=== PATIENT | female | born 1945 | race Caucasian/White ===

== ENCOUNTER 2018-03-22 07:18 | Day surgery (SDC) | payer MEDICARE, MEDICAID ==
[~2018-03-22] VITALS: Ht 157.5 cm; Wt 78.5 kg
[~2018-03-22 07:18] MED LIST: CLON0.1T PO; CLOP75TA15 PO; FAMO20TA8 PO; LACTATED RINGERS 1,000 ML IV SCH; LOSA100T14 PO; MECL-109 PO
[2018-03-22] MEDS ORDERED: SKIN ADHESIVE 0.7 GM EA TOP ONE ×2 (07:33→10:55)
[2018-03-22] MEDS ORDERED: BUPIVACAINE HCL 0.5% (5MG/ML) 50ML ONE (09:19)
[2018-03-22] MEDS ORDERED: LIDOCAINE HCL/PF 1% 10 MG/ML 5ML VIAL ONE (09:58)
[2018-03-22] MEDS ORDERED: MIDAZOLAM HCL 2 MG/2 ML VIAL ONE (09:58)
[2018-03-22] MEDS ORDERED: FENTANYL CITRATE/PF 50MCG/ML 2ML VIAL ONE (09:58)
[2018-03-22] MEDS ORDERED: PROPOFOL 200MG/20ML VIAL IV ONE (09:58)
[2018-03-22] MEDS ORDERED: ROCURONIUM BROMIDE 10MG/ML VIAL 5ML IV ONE (09:59)
[2018-03-22] MEDS ORDERED: EPHEDRINE SULFATE 50MG/ML VIAL ONE (10:02)
[2018-03-22] MEDS ORDERED: SODIUM CHLORIDE 0.9% 10ML VIAL ONE ×2 (10:02→10:03)
[2018-03-22] MEDS ORDERED: CEFAZOLIN SODIUM 1000MG/VIAL ONE ×2 (10:02→10:36)
[2018-03-22] MEDS ORDERED: BUPIVACAINE HCL/PF 0.5% (5MG/ML) 10ML ONE (11:04)
[2018-03-22] MEDS ORDERED: NEOSTIGMINE METHYLSULFATE 1MG/ML 10 ML VIAL ONE (11:10)
[2018-03-22] MEDS ORDERED: GLYCOPYRROLATE 0.2 MG/ML 2ML VIAL ONE (11:11)
[2018-03-22] MEDS ORDERED: LABETALOL HCL 5MG/ML VIAL 20ML IV ONE (11:46)
[2018-03-22] MEDS ORDERED: MORPHINE SULFATE 10 MG/ML CPJ IV PRN (12:15)
[2018-03-22] MEDS ORDERED: BUPIVACAINE HCL 0.5% 125 ML in ON-Q PM012 DRUG DELIV DEVICE 1 EA IR SCH (12:30)
== END 2018-03-22 14:15 | disposition home or self-care (01) ==
LOC: OR 07:18
PROVIDERS: ATTEND Surgery
DX: K40.90 Unilateral inguinal hernia, without obstruction or gangrene, not specified as recurrent (principal); E78.00 Pure hypercholesterolemia, unspecified; I10 Essential (primary) hypertension; K21.9 Gastro-esophageal reflux disease without esophagitis; Z79.899 Other long term (current) drug therapy; Z98.890 Other specified postprocedural states; Z88.8 Allergy status to other drugs, medicaments and biological substances
CPT/HCPCS: 49505; A4216; C1781; J0690; J2250; J2710; J3010; J3490; J2704; J7120

== ENCOUNTER 2018-03-28 16:35 | Emergency (ER) | payer MEDICARE, MEDICAID ==
[~2018-03-28] VITALS: Ht 160 cm; Wt 70.0 kg
[~2018-03-28 16:35] MED LIST changes: -LACTATED RINGERS 1,000 ML IV SCH
[2018-03-28] MEDS ORDERED: SODIUM CHLORIDE 0.9% 1,000 ML IV ONE (17:25)
[2018-03-28] MEDS ORDERED: MECLIZINE 25MG TABLET PO ONE (17:30)
[2018-03-28] MEDS ORDERED: CLONIDINE 0.2MG TABLET PO ONE (17:30)
[2018-03-28 18:54] LABS: EOSINOPHILS % 2.8 % (0.0-5.0); HEMATOCRIT. 37.8 % (36.0-48.0); HEMOGLOBIN. 13.3 g/dL (12.0-16.0); LYMPHOCYTES % 17.3 % (20.0-50.0); MEAN CORPUSCULAR HEMOGLOBIN 31.5 pg (28.0-32.0); MEAN CORPUSCULAR VOLUME 89.7 fL (81.0-99.0); MEAN PLATELET VOLUME 7.8 fl (7.4-10.4); MONOCYTES % 7.6 % (2.0-8.0); NEUTROPHILS % 71.3 % (40.0-76.0); PLATELET 309 x1000/uL (130-400); RED BLOOD CELL COUNT 4.21 mill/uL (4.2-5.4); RED CELL DISTRIBUTION WIDTH 12.5 % (11.6-14.6)
[2018-03-28 18:59] LABS: CHLORIDE 104 mEq/L (98-107)
[2018-03-28 19:02] LABS: PARTIAL THROMBOPLASTIN TIME 28.6 sec (23.4-31.0); PROTHROMBIN TIME 10.1 sec (9.1-11.1)
[2018-03-28 20:40] LABS: CLARITY URINE CLEAR (CLEAR); COLOR URINE YELLOW (YELLOW); KETONES URINE NEGATIVE (NEGATIVE); LEUKOCYTE ESTERASE URINE NEGATIVE (NEGATIVE); NITRITE URINE NEGATIVE (NEGATIVE); OCCULT BLOOD URINE NEGATIVE (NEGATIVE); PH URINE 7.5 (4.5-8.0); PROTEIN URINE NEGATIVE (NEGATIVE); SPECIFIC GRAVITY URINE 1.004 (1.005-1.030); UROBILINOGEN URINE 0.2 E.U./dL (0.2-1.0)
[2018-03-28 21:30] VITALS: BP 153/59
[2018-03-28] MEDS ORDERED: ONDANSETRON 4MG/5ML UDC PO ONE (22:00)
== END 2018-03-28 21:42 | disposition home or self-care (01) ==
LOC: ER 17:34
DX: H81.10 Benign paroxysmal vertigo, unspecified ear (principal); I10 Essential (primary) hypertension; Z88.8 Allergy status to other drugs, medicaments and biological substances
CPT/HCPCS: 36415; 70450; 71045; 80053; 81003; 83880; 84484; 85025; 85610; 85730; 87086; 93005; 96360; 96361; 99284; J7030; J8597

== ENCOUNTER 2018-11-30 11:56 | Emergency (ER) | payer MEDICARE, MEDICAID ==
[~2018-11-30] VITALS: Ht 157.5 cm; Wt 73.0 kg
[~2018-11-30 11:56] MED LIST changes: -LOSA100T14 PO; +LOSA100T32 PO
[2018-11-30 17:31] LABS: BASOPHILS % 1.1 % (0.0-2.0); HEMATOCRIT. 42.1 % (36.0-48.0); HEMOGLOBIN. 14.4 g/dL (12.0-16.0); LYMPHOCYTES % 22.7 % (20.0-50.0); MEAN CORPUSCULAR HEMOGLOBIN 31.6 pg (28.0-32.0); MEAN CORPUSCULAR VOLUME 92.2 fL (81.0-99.0); MEAN PLATELET VOLUME 8.3 fl (7.4-10.4); MONOCYTES % 9.7 % (2.0-8.0); NEUTROPHILS % 65.5 % (40.0-76.0); PLATELET 250 x1000/uL (130-400); RED BLOOD CELL COUNT 4.57 mill/uL (4.2-5.4)
[2018-11-30 17:42] LABS: CHLORIDE 103 mEq/L (98-107)
[2018-11-30 18:26] LABS: CLARITY URINE CLEAR (CLEAR); COLOR URINE YELLOW (YELLOW); KETONES URINE NEGATIVE (NEGATIVE); LEUKOCYTE ESTERASE URINE 1+ (NEGATIVE); NITRITE URINE NEGATIVE (NEGATIVE); OCCULT BLOOD URINE TRACE (NEGATIVE); PROTEIN URINE NEGATIVE (NEGATIVE); SPECIFIC GRAVITY URINE 1.008 (1.005-1.030); UROBILINOGEN URINE 0.2 E.U./dL (0.2-1.0)
[2018-11-30] MEDS ORDERED: SODIUM CHLORIDE 0.9% 1,000 ML IV ONE (18:36)
[2018-11-30] MEDS ORDERED: CEFTRIAXONE 1 G PREMIX 50 ML IV ONE (18:45)
[2018-11-30] MEDS ORDERED: MECLIZINE 25MG TABLET PO ONE (18:45)
[2018-11-30] MEDS ORDERED: ACETAMINOPHEN 325MG TABLET PO ONE (18:45)
[2018-11-30 21:20] VITALS: BP 144/50
== END 2018-11-30 21:30 | disposition home or self-care (01) ==
LOC: ER 11:56
DX: N39.0 Urinary tract infection, site not specified (principal); R42 Dizziness and giddiness; R51 Headache; I10 Essential (primary) hypertension; Z88.8 Allergy status to other drugs, medicaments and biological substances; Z88.6 Allergy status to analgesic agent; Z79.899 Other long term (current) drug therapy
CPT/HCPCS: 36415; 70450; 71045; 80053; 81003; 83880; 84484; 85025; 85610; 93005; 96365; 99284; J0696; J7030; J8597

== ENCOUNTER 2018-12-03 15:01 | Emergency (ER) | payer MEDICARE, MEDICAID ==
[~2018-12-03] VITALS: Ht 165.1 cm; Wt 73.0 kg
[2018-12-03 18:27] VITALS: BP 133/85
== END 2018-12-03 23:00 | disposition home or self-care (01) ==
LOC: ER 19:18
DX: N39.0 Urinary tract infection, site not specified (principal); R51 Headache; I10 Essential (primary) hypertension; Z88.8 Allergy status to other drugs, medicaments and biological substances; Z88.6 Allergy status to analgesic agent; Z79.899 Other long term (current) drug therapy
CPT/HCPCS: 99283

== ENCOUNTER 2020-02-02 15:31 | Emergency (ER) | payer MEDICARE, MEDICAID ==
[~2020-02-02] VITALS: Ht 157.5 cm; Wt 79.0 kg
[~2020-02-02 15:31] MED LIST changes: -MECL-109 PO; +MECL-159 PO
[2020-02-02 18:46] LABS: BASOPHILS % 1.4 % (0.0-2.0); EOSINOPHILS % 3.2 % (0.0-5.0); HEMATOCRIT. 41.6 % (36.0-48.0); HEMOGLOBIN. 14.2 g/dL (12.0-16.0); LYMPHOCYTES % 23.4 % (20.0-50.0); MEAN CORPUSCULAR HEMOGLOBIN 31.6 pg (28.0-32.0); MEAN CORPUSCULAR VOLUME 92.4 fL (81.0-99.0); MEAN PLATELET VOLUME 8.6 fl (7.4-10.4); MONOCYTES % 9.9 % (2.0-8.0); NEUTROPHILS % 62.1 % (40.0-76.0); PLATELET 233 x1000/uL (130-400); RED CELL DISTRIBUTION WIDTH 13.1 % (11.6-14.6)
[2020-02-02 18:56] LABS: CHLORIDE 107 mEq/L (98-107)
[2020-02-02 19:00] LABS: CLARITY URINE CLEAR (CLEAR); COLOR URINE YELLOW (YELLOW); KETONES URINE NEGATIVE (NEGATIVE); LEUKOCYTE ESTERASE URINE NEGATIVE (NEGATIVE); NITRITE URINE NEGATIVE (NEGATIVE); OCCULT BLOOD URINE NEGATIVE (NEGATIVE); PH URINE 6.5 (4.5-8.0); PROTEIN URINE NEGATIVE (NEGATIVE); SPECIFIC GRAVITY URINE 1.012 (1.005-1.030)
[2020-02-02] MEDS ORDERED: SODIUM CHLORIDE 0.9% 500 ML IV ONE (21:30)
[2020-02-03 00:07] LABS: CHLORIDE 107 mEq/L (98-107)
[2020-02-03 01:45] VITALS: BP 156/71
== END 2020-02-03 02:00 | disposition home or self-care (01) ==
LOC: ER 15:31
DX: R42 Dizziness and giddiness (principal); I10 Essential (primary) hypertension; Z88.8 Allergy status to other drugs, medicaments and biological substances
CPT/HCPCS: 36415; 70450; 80053; 81003; 81025; 83880; 84484; 85025; 93005; 96360; 99285; J7040

== ENCOUNTER 2021-10-21 16:58 | Inpatient (IN) | payer MEDICARE, MEDICAID ==
[~2021-10-21] VITALS: Ht 152.4 cm; Wt 77.1 kg
[~2021-10-21 16:58] MED LIST changes: +ALEN35TA52 PO; +ASPI-1497 PO; +ATOR20TA PO; -CLON0.1T PO; -FAMO20TA8 PO; +FURO-151 PO; +LISI40TA13 PO; -LOSA100T32 PO
[2021-10-21 20:51] LABS: HEMATOCRIT. 40.2 % (36.0-48.0); HEMOGLOBIN. 13.7 g/dL (12.0-16.0); MEAN CORPUSCULAR HEMOGLOBIN 30.2 pg (28.0-32.0); MEAN PLATELET VOLUME 7.8 fl (7.4-10.4); PLATELET 287 x1000/uL (130-400); RED BLOOD CELL COUNT 4.52 mill/uL (4.2-5.4); RED CELL DISTRIBUTION WIDTH 12.7 % (11.6-14.6)
[2021-10-21 20:57] LABS: CHLORIDE 102 mEq/L (98-107)
[2021-10-21 21:17] LABS: PLATELET ESTIMATE NORMAL
[2021-10-21] MEDS ORDERED: ONDANSETRON 4MG ODT PO STA (23:12)
[2021-10-21] MEDS ORDERED: MAGNESIUM/ALUMINUM HYDROXIDE/SIMETHICONE 30ML UDC PO STA (23:12)
[2021-10-21] MEDS ORDERED: VISCOUS LIDOCAINE 2% 15 ML UDC PO STA (23:12)
[2021-10-21] MEDS ORDERED: FAMOTIDINE 20MG TABLET PO ONE (23:15)
[2021-10-22] VITALS (16 sets, daily range): BP systolic 101–130; BP diastolic 37–52
[2021-10-22 00:14] LABS: CLARITY URINE CLOUDY (CLEAR); COLOR URINE DARK YELLOW (YELLOW); KETONES URINE 1+ (NEGATIVE); LEUKOCYTE ESTERASE URINE 3+ (NEGATIVE); NITRITE URINE NEGATIVE (NEGATIVE); OCCULT BLOOD URINE 1+ (NEGATIVE); PH URINE 5.5 (4.5-8.0); PROTEIN URINE 1+ (NEGATIVE); SPECIFIC GRAVITY URINE 1.023 (1.005-1.030)
[2021-10-22] MEDS ORDERED: SODIUM CHLORIDE 0.9% 1,000 ML IV ONE (01:00)
[2021-10-22] MEDS ORDERED: CEFTRIAXONE 1 G PREMIX 50 ML IV ONE (01:00)
[2021-10-22] MEDS ORDERED: METRONIDAZOLE 500 MG PREMIX 100 ML IV ONE (02:45)
[2021-10-22] MEDS ORDERED: METRONIDAZOLE 500 MG PREMIX 100 ML IV NR (06:45)
[2021-10-22] MEDS ORDERED: LIDOCAINE HCL 1% 20ML VIAL (Pyxis) INJ ONE (09:46)
[2021-10-22] MEDS ORDERED: ONDANSETRON HCL 4MG/2ML INJ IV PRN (10:00)
[2021-10-22] MEDS ORDERED: ACETAMINOPHEN 325MG TABLET PO PRN (10:00)
[2021-10-22] MEDS ORDERED: NITR100C MT (11:56)
[2021-10-22] MEDS ORDERED: PNEUMOCOCCAL VACCINE IM ONE (12:15)
[2021-10-22 12:41] LABS: INR 1.2; PROTHROMBIN TIME 12.4 sec (9.6-11.0)
[2021-10-22] MEDS ORDERED: FENTANYL CITRATE/PF 50MCG/ML 2ML VIAL ONE (12:59)
[2021-10-22] MEDS ORDERED: FENTANYL CITRATE/PF 50MCG/ML 2ML VIAL IV NR (13:45)
[2021-10-22] MEDS: PIPERACILLIN/TAZOBACTAM 3.375 G in DEXTROSE 5% WATER 50 ML IV SCH ×2 (14:38→21:23)
[2021-10-23] VITALS: BP 120/52
[2021-10-23 04:00] VITALS: BP 113/50
[2021-10-23] MEDS: PIPERACILLIN/TAZOBACTAM 3.375 G in DEXTROSE 5% WATER 50 ML IV SCH ×3 (06:38→22:11)
[2021-10-23 08:00] VITALS: BP 112/44
[2021-10-23 08:33] LABS: BASOPHILS % 0.2 % (0.0-2.0); EOSINOPHILS % 0.3 % (0.0-5.0); HEMATOCRIT. 35.7 % (36.0-48.0); HEMOGLOBIN. 12.4 g/dL (12.0-16.0); LYMPHOCYTES % 11.2 % (20.0-50.0); MEAN CORPUSCULAR HEMOGLOBIN 31.1 pg (28.0-32.0); MEAN CORPUSCULAR VOLUME 89.4 fL (81.0-99.0); MEAN PLATELET VOLUME 8.4 fl (7.4-10.4); MONOCYTES % 7.3 % (2.0-8.0); PLATELET 213 x1000/uL (130-400); RED CELL DISTRIBUTION WIDTH 13.1 % (11.6-14.6)
[2021-10-23 09:19] LABS: CHLORIDE 104 mEq/L (98-107)
[2021-10-23] MEDS ORDERED: POTASSIUM CHLORIDE 20MEQ TABLET SR PO NR (10:00)
[2021-10-23 12:00] VITALS: BP 111/50
[2021-10-23 16:00] VITALS: BP 128/80
[2021-10-23 20:00] VITALS: BP 119/66
[2021-10-24] VITALS: BP 109/38
[2021-10-24 04:00] VITALS: BP 104/39
[2021-10-24] MEDS: PIPERACILLIN/TAZOBACTAM 3.375 G in DEXTROSE 5% WATER 50 ML IV SCH ×2 (05:09→13:42)
[2021-10-24 08:00] VITALS: BP 107/44
[2021-10-24 08:01] LABS: BASOPHILS % 0.4 % (0.0-2.0); EOSINOPHILS % 1.4 % (0.0-5.0); HEMATOCRIT. 35.2 % (36.0-48.0); HEMOGLOBIN. 12.1 g/dL (12.0-16.0); LYMPHOCYTES % 13.6 % (20.0-50.0); MEAN CORPUSCULAR VOLUME 89.9 fL (81.0-99.0); MEAN PLATELET VOLUME 8.5 fl (7.4-10.4); MONOCYTES % 8.9 % (2.0-8.0); NEUTROPHILS % 75.7 % (40.0-76.0); PLATELET 222 x1000/uL (130-400); RED BLOOD CELL COUNT 3.91 mill/uL (4.2-5.4)
[2021-10-24 08:52] LABS: CHLORIDE 107 mEq/L (98-107)
[2021-10-24 12:00] VITALS: BP 106/68
[2021-10-24] MEDS ORDERED: LEVO500T90 MT (12:03)
[2021-10-24] MEDS ORDERED: POTASSIUM CHLORIDE 20MEQ TABLET SR PO NR (12:15)
[2021-10-24 14:30] VITALS: BP 106/68
[2021-10-24 16:00] VITALS: BP 115/84
== END 2021-10-24 16:14 | disposition home or self-care (01) | DRG 442 ==
LOC: ER 16:58 → 6EST 10-22 02:13 → CANRESERV 10-22 08:01 → ENRESERV 10-22 08:01
PROVIDERS: ADMIT Internal Medicine; ATTEND Internal Medicine
PROC: 0F9030Z Drainage of Liver with Drainage Device, Percutaneous Approach (ICD-10-PCS; principal; 2021-10-22)
DX: K75.0 Abscess of liver (principal); N39.0 Urinary tract infection, site not specified; R65.10 Systemic inflammatory response syndrome (SIRS) of non-infectious origin without acute organ dysfunction; K80.20 Calculus of gallbladder without cholecystitis without obstruction; E66.9 Obesity, unspecified; I10 Essential (primary) hypertension; D25.9 Leiomyoma of uterus, unspecified; E78.00 Pure hypercholesterolemia, unspecified; D72.829 Elevated white blood cell count, unspecified; E78.5 Hyperlipidemia, unspecified; Z20.822 Contact with and (suspected) exposure to COVID-19; N81.4 Uterovaginal prolapse, unspecified; I70.0 Atherosclerosis of aorta; Z88.8 Allergy status to other drugs, medicaments and biological substances; Z79.82 Long term (current) use of aspirin; Z79.899 Other long term (current) drug therapy; Z68.33 Body mass index [BMI] 33.0-33.9, adult; Z71.3 Dietary counseling and surveillance
CPT/HCPCS: 36415; 74176; 76700; 76942; 80048; 80053; 81003; 85025; 87077; 87186; 87426; 90732; 93005; 99152; 99153; 99285; C1729; C1760; J0696; J2543; J3010; J3490; J7030; J7060; Q0162; G0500

== ENCOUNTER 2021-11-07 14:30 | Emergency (ER) | payer MEDICARE, MEDICAID ==
[~2021-11-07] VITALS: Ht 152.4 cm; Wt 74.0 kg
[~2021-11-07 14:30] MED LIST changes: +LEVO500T90 MT; +NITR100C MT
[2021-11-07 14:33] VITALS: BP 143/57
== END 2021-11-07 16:01 | disposition home or self-care (01) ==
LOC: ER 14:30
DX: Z00.00 Encounter for general adult medical examination without abnormal findings (principal); Z79.899 Other long term (current) drug therapy; R68.89 Other general symptoms and signs
CPT/HCPCS: 99281

== ENCOUNTER 2021-12-03 16:22 | Emergency (ER) | payer MEDICARE, MEDICAID ==
[~2021-12-03] VITALS: Ht 160 cm; Wt 75.0 kg
[~2021-12-03 16:22] MED LIST changes: -NITR100C MT
[2021-12-03] MEDS ORDERED: IBUPROFEN 600MG TABLET PO ONE (18:15)
[2021-12-03 18:22] LABS: BASOPHILS % 0.7 % (0.0-2.0); HEMOGLOBIN. 13.5 g/dL (12.0-16.0); LYMPHOCYTES % 9.3 % (20.0-50.0); MEAN CORPUSCULAR HEMOGLOBIN 30.8 pg (28.0-32.0); PLATELET 241 x1000/uL (130-400); RED BLOOD CELL COUNT 4.39 mill/uL (4.2-5.4); RED CELL DISTRIBUTION WIDTH 13.4 % (11.6-14.6)
[2021-12-03 18:26] LABS: CHLORIDE 102 mEq/L (98-107)
[2021-12-03 22:40] VITALS: BP 142/78
== END 2021-12-03 22:48 | disposition home or self-care (01) ==
LOC: ER 16:22
DX: K75.0 Abscess of liver (principal); E78.00 Pure hypercholesterolemia, unspecified; I10 Essential (primary) hypertension; Z98.890 Other specified postprocedural states; Z88.8 Allergy status to other drugs, medicaments and biological substances; Z88.6 Allergy status to analgesic agent; Z79.899 Other long term (current) drug therapy
CPT/HCPCS: 36415; 76705; 80053; 85025; 99284

== ENCOUNTER 2022-01-11 20:09 | Emergency (ER) | payer MEDICARE, MEDICAID ==
[~2022-01-11] VITALS: Ht 152.4 cm; Wt 71.2 kg
[2022-01-11] MEDS ORDERED: DIPH25CA83 MT (22:59)
[2022-01-11 23:35] VITALS: BP 125/78
== END 2022-01-11 23:36 | disposition home or self-care (01) ==
LOC: ER 20:09
DX: L74.0 Miliaria rubra (principal); I10 Essential (primary) hypertension; E78.00 Pure hypercholesterolemia, unspecified; Z88.8 Allergy status to other drugs, medicaments and biological substances; Z88.6 Allergy status to analgesic agent; Z79.899 Other long term (current) drug therapy; Z98.890 Other specified postprocedural states
CPT/HCPCS: 99282

== ENCOUNTER 2022-02-08 07:02 | Inpatient (IN) | payer MEDICARE, MEDICAID ==
[~2022-02-08] VITALS: Ht 160 cm; Wt 75.7 kg
[2022-02-08] VITALS (17 sets, daily range): BP systolic 85–145; BP diastolic 44–102
[~2022-02-08 07:02] MED LIST changes: +DIPH25CA83 MT; +LEVO-65 MT; -LEVO500T90 MT
[2022-02-08] MEDS ORDERED: LACTATED RINGERS 1,000 ML IV SCH (08:00)
[2022-02-08] MEDS ORDERED: SKIN ADHESIVE 0.7 GM EA TOP ONE (08:43)
[2022-02-08] MEDS ORDERED: BUPIVACAINE HCL/PF 0.5% (5MG/ML) 10ML ONE ×2 (08:43→10:16)
[2022-02-08] MEDS ORDERED: PROPOFOL 200MG/20ML VIAL IV ONE (09:47)
[2022-02-08] MEDS ORDERED: FENTANYL CITRATE/PF 50MCG/ML 2ML VIAL ONE ×2 (09:47→13:24)
[2022-02-08] MEDS ORDERED: ROCURONIUM BROMIDE 10MG/ML VIAL 5ML IV ONE ×2 (09:47→12:09)
[2022-02-08] MEDS ORDERED: MIDAZOLAM HCL 2 MG/2 ML VIAL ONE (09:47)
[2022-02-08] MEDS ORDERED: CEFAZOLIN SODIUM 1000MG/VIAL ONE ×2 (10:17)
[2022-02-08] MEDS ORDERED: PHENYLEPHRINE HCL 10 MG/ML 1ML (IV VIAL) IV ONE (10:24)
[2022-02-08] MEDS ORDERED: ONDANSETRON HCL 4MG/2ML INJ ONE (10:43)
[2022-02-08] MEDS ORDERED: METOCLOPRAMIDE HCL 10MG/2ML VIAL ONE (10:43)
[2022-02-08] MEDS ORDERED: IOPAMIDOL 10 ML VIAL IT ONE (11:28)
[2022-02-08] MEDS ORDERED: IOPAMIDOL 61% 300/15 ML VIAL IT ONE ×2 (11:32)
[2022-02-08 12:38] LABS: HEMATOCRIT 27.8 % (36.0-48.0); HEMOGLOBIN 9.4 g/dL (12.0-16.0)
[2022-02-08] MEDS ORDERED: VASOPRESSIN 20 UNIT/ML 1ML ONE (12:47)
[2022-02-08] MEDS ORDERED: EPHEDRINE SULFATE 50MG/ML VIAL ONE (12:47)
[2022-02-08] MEDS ORDERED: GLYCOPYRROLATE 0.2 MG/ML 2ML VIAL ONE (13:25)
[2022-02-08] MEDS ORDERED: ACETAMINOPHEN 650MG SUPP PR PRN ×2 (13:45)
[2022-02-08] MEDS ORDERED: ENOXAPARIN 40MG/0.4ML SYR SUBCUT SCH (13:45)
[2022-02-08] MEDS ORDERED: ONDANSETRON HCL 4MG/2ML INJ IV PRN (13:45)
[2022-02-08] MEDS ORDERED: PIPERACILLIN/TAZ 3.375G PREMIX 50 ML IV SCH (13:45)
[2022-02-08] MEDS ORDERED: NOREPINEPHRINE 8 MG in DEXT 5% WATER 242 ML IV PRN (13:45)
[2022-02-08] MEDS ORDERED: MORPHINE SULFATE 2 MG/ML CPJ (NOT FOR IM USE) IV NR (15:00)
[2022-02-08] MEDS: DEXT 5%/LACTATED RINGERS 1,000 ML IV SCH (15:13)
[2022-02-08] MEDS: PANTOPRAZOLE SODIUM 40 MG/VIAL IV SCH (15:13)
[2022-02-08] MEDS: PIPERACILLIN/TAZOBACTAM 3.375 G in DEXTROSE 5% WATER 50 ML IV SCH ×2 (15:13→21:08)
[2022-02-08] MEDS ORDERED: HYDROMORPHONE PCA 10MG/50ML IV PRN (15:30)
[2022-02-08] MEDS ORDERED: ONDANSETRON INJ IV PRN (15:30)
[2022-02-08] MEDS ORDERED: DIPHENHYDRAMINE INJ IV PRN (15:30)
[2022-02-08] MEDS ORDERED: NALOXONE INJ IV PRN (15:30)
[2022-02-08 15:39] LABS: HEMATOCRIT 29.3 % (36.0-48.0); HEMOGLOBIN 9.7 g/dL (12.0-16.0); MEAN CORPUSCULAR HEMOGLOBIN 30.2 pg (28.0-32.0); MEAN CORPUSCULAR VOLUME 91.2 fL (81.0-99.0); PLATELET 256 x1000/uL (130-400); RED BLOOD CELL COUNT 3.21 mill/uL (4.2-5.4); RED CELL DISTRIBUTION WIDTH 13.5 % (11.6-14.6)
[2022-02-08] MEDS ORDERED: MORPHINE SULFATE 4 MG/ML CPJ (NOT FOR IM USE) IV PRN (16:00)
[2022-02-08 16:06] LABS: CHLORIDE 108 mEq/L (98-107); T4 FREE 1.38 ng/dL (0.76-1.46); TOTAL IRON BINDING CAPACITY 233 ug/dL (250-450)
[2022-02-09] VITALS (25 sets, daily range): BP systolic 93–158; BP diastolic 32–92
[2022-02-09 05:27] LABS: BASOPHILS % 0.2 % (0.0-2.0); HEMATOCRIT. 31.7 % (36.0-48.0); HEMOGLOBIN. 10.8 g/dL (12.0-16.0); MEAN CORPUSCULAR HEMOGLOBIN 30.7 pg (28.0-32.0); MEAN CORPUSCULAR VOLUME 90.1 fL (81.0-99.0); MEAN PLATELET VOLUME 8.5 fl (7.4-10.4); MONOCYTES % 6.6 % (2.0-8.0); NEUTROPHILS % 85.2 % (40.0-76.0); PLATELET 268 x1000/uL (130-400); RED BLOOD CELL COUNT 3.52 mill/uL (4.2-5.4); RED CELL DISTRIBUTION WIDTH 13.5 % (11.6-14.6)
[2022-02-09] MEDS: PIPERACILLIN/TAZOBACTAM 3.375 G in DEXTROSE 5% WATER 50 ML IV SCH ×3 (05:30→21:25)
[2022-02-09] MEDS: DEXT 5%/LACTATED RINGERS 1,000 ML IV SCH ×3 (05:30→21:25)
[2022-02-09 05:32] LABS: CHLORIDE 112 mEq/L (98-107)
[2022-02-09 05:39] LABS: PHOSPHORUS 3.9 mg/dL (2.5-4.9)
[2022-02-09] MEDS: PANTOPRAZOLE SODIUM 40 MG/VIAL IV SCH (08:40)
[2022-02-09 15:00] LABS: CLARITY URINE CLOUDY (CLEAR); COLOR URINE DARK YELLOW (YELLOW); KETONES URINE TRACE (NEGATIVE); LEUKOCYTE ESTERASE URINE 1+ (NEGATIVE); NITRITE URINE NEGATIVE (NEGATIVE); OCCULT BLOOD URINE NEGATIVE (NEGATIVE); PROTEIN URINE 1+ (NEGATIVE); SPECIFIC GRAVITY URINE 1.029 (1.005-1.030); UROBILINOGEN URINE 0.2 E.U./dL (0.2-1.0)
[2022-02-10] VITALS (24 sets, daily range): BP systolic 132–168; BP diastolic 55–91
[2022-02-10] MEDS: PIPERACILLIN/TAZOBACTAM 3.375 G in DEXTROSE 5% WATER 50 ML IV SCH ×3 (07:33→21:19)
[2022-02-10] MEDS: PANTOPRAZOLE SODIUM 40 MG/VIAL IV SCH (08:33)
[2022-02-10] MEDS ORDERED: VANCOMYCIN 1500MG in DEXTROSE 5% WATER 250ML IV SCH (16:00)
[2022-02-10] MEDS: MORPHINE SULFATE 2 MG/ML CPJ (NOT FOR IM USE) IV PRN (18:23)
[2022-02-10] MEDS: DEXT 5%/LACTATED RINGERS 1,000 ML IV SCH (19:06)
[2022-02-11] VITALS (25 sets, daily range): BP systolic 109–143; BP diastolic 43–64
[2022-02-11] MEDS: PIPERACILLIN/TAZOBACTAM 3.375 G in DEXTROSE 5% WATER 50 ML IV SCH ×3 (05:55→21:35)
[2022-02-11] MEDS: PANTOPRAZOLE SODIUM 40 MG/VIAL IV SCH (08:22)
[2022-02-11] MEDS: DEXT 5%/LACTATED RINGERS 1,000 ML IV SCH ×2 (08:22→21:36)
[2022-02-11] MEDS: VANCOMYCIN 1GM PMX (XELLIA) 200 ML IV SCH (10:16)
[2022-02-11 13:00] LABS: BASOPHILS % 0.2 % (0.0-2.0); EOSINOPHILS % 0.1 % (0.0-5.0); HEMATOCRIT. 24.8 % (36.0-48.0); HEMOGLOBIN. 8.5 g/dL (12.0-16.0); LYMPHOCYTES % 9.3 % (20.0-50.0); MEAN CORPUSCULAR VOLUME 92.9 fL (81.0-99.0); MEAN PLATELET VOLUME 8.3 fl (7.4-10.4); MONOCYTES % 8.9 % (2.0-8.0); NEUTROPHILS % 81.5 % (40.0-76.0); PLATELET 225 x1000/uL (130-400); RED BLOOD CELL COUNT 2.67 mill/uL (4.2-5.4); RED CELL DISTRIBUTION WIDTH 13.8 % (11.6-14.6)
[2022-02-11] MEDS ORDERED: PHENOL/SODIUM PHENOLATE 1.4% SRPAY 177ML MM PRN (13:00)
[2022-02-11] MEDS: MORPHINE SULFATE 2 MG/ML CPJ (NOT FOR IM USE) IV PRN ×2 (13:39→19:57)
[2022-02-12] VITALS (25 sets, daily range): BP systolic 101–142; BP diastolic 41–62
[2022-02-12] MEDS: MORPHINE SULFATE 2 MG/ML CPJ (NOT FOR IM USE) IV PRN ×2 (02:05→18:18)
[2022-02-12 05:05] LABS: BASOPHILS % 0.1 % (0.0-2.0); EOSINOPHILS % 0.2 % (0.0-5.0); HEMOGLOBIN. 7.6 g/dL (12.0-16.0); LYMPHOCYTES % 9.8 % (20.0-50.0); MEAN CORPUSCULAR HEMOGLOBIN 31.8 pg (28.0-32.0); MEAN CORPUSCULAR VOLUME 91.6 fL (81.0-99.0); MONOCYTES % 11.1 % (2.0-8.0); NEUTROPHILS % 78.8 % (40.0-76.0); PLATELET 235 x1000/uL (130-400); RED CELL DISTRIBUTION WIDTH 13.7 % (11.6-14.6)
[2022-02-12] MEDS: PIPERACILLIN/TAZOBACTAM 3.375 G in DEXTROSE 5% WATER 50 ML IV SCH ×3 (05:28→21:13)
[2022-02-12] MEDS: PANTOPRAZOLE SODIUM 40 MG/VIAL IV SCH (08:22)
[2022-02-12] MEDS: VANCOMYCIN 1GM PMX (XELLIA) 200 ML IV SCH (08:23)
[2022-02-12] MEDS: DEXT 5%/LACTATED RINGERS 1,000 ML IV SCH (10:21)
[2022-02-13] VITALS (23 sets, daily range): BP systolic 107–157; BP diastolic 27–88
[2022-02-13] MEDS: DEXT 5%/LACTATED RINGERS 1,000 ML IV SCH ×2 (00:13→09:35)
[2022-02-13 04:25] LABS: BASOPHILS % 0.1 % (0.0-2.0); EOSINOPHILS % 0.4 % (0.0-5.0); HEMATOCRIT. 21.3 % (36.0-48.0); HEMOGLOBIN. 7.3 g/dL (12.0-16.0); LYMPHOCYTES % 7.6 % (20.0-50.0); MEAN CORPUSCULAR HEMOGLOBIN 31.1 pg (28.0-32.0); MEAN CORPUSCULAR VOLUME 90.8 fL (81.0-99.0); MEAN PLATELET VOLUME 7.8 fl (7.4-10.4); MONOCYTES % 11.8 % (2.0-8.0); NEUTROPHILS % 80.1 % (40.0-76.0); PLATELET 312 x1000/uL (130-400); RED BLOOD CELL COUNT 2.35 mill/uL (4.2-5.4); RED CELL DISTRIBUTION WIDTH 14.2 % (11.6-14.6)
[2022-02-13] MEDS: PIPERACILLIN/TAZOBACTAM 3.375 G in DEXTROSE 5% WATER 50 ML IV SCH ×3 (05:39→22:34)
[2022-02-13] MEDS: PANTOPRAZOLE SODIUM 40 MG/VIAL IV SCH (08:12)
[2022-02-13] MEDS ORDERED: POTASSIUM CHLORIDE 20MEQ/PACKET PO SCH (09:30)
[2022-02-13] MEDS: VANCOMYCIN 750MG PMX (XELLIA) 150 ML IV SCH (09:34)
[2022-02-14 06:19] LABS: BASOPHILS % 0.1 % (0.0-2.0); EOSINOPHILS % 0.3 % (0.0-5.0); HEMATOCRIT. 24.7 % (36.0-48.0); HEMOGLOBIN. 8.3 g/dL (12.0-16.0); LYMPHOCYTES % 7.9 % (20.0-50.0); MEAN CORPUSCULAR VOLUME 92.2 fL (81.0-99.0); MEAN PLATELET VOLUME 7.6 fl (7.4-10.4); MONOCYTES % 11.7 % (2.0-8.0); PLATELET 367 x1000/uL (130-400); RED BLOOD CELL COUNT 2.68 mill/uL (4.2-5.4); RED CELL DISTRIBUTION WIDTH 14.1 % (11.6-14.6)
[2022-02-14 07:24] LABS: CHLORIDE 115 mEq/L (98-107)
[2022-02-14 08:00] VITALS: BP 150/55
[2022-02-14] MEDS: VANCOMYCIN 750MG PMX (XELLIA) 150 ML IV SCH (08:48)
[2022-02-14] MEDS: PANTOPRAZOLE SODIUM 40 MG/VIAL IV SCH (08:48)
[2022-02-14] MEDS: MORPHINE SULFATE 2 MG/ML CPJ (NOT FOR IM USE) IV PRN (08:49)
[2022-02-14 12:06] VITALS: BP 140/43
[2022-02-14 16:00] VITALS: BP 138/50
[2022-02-14] MEDS ORDERED: NALOXONE HCL 0.4MG/ML VIAL IV PRN (16:15)
[2022-02-14] MEDS: DEXT 5%/LACTATED RINGERS 1,000 ML IV SCH (16:20)
[2022-02-14] MEDS: PIPERACILLIN/TAZOBACTAM 3.375 G in DEXTROSE 5% WATER 50 ML IV SCH ×2 (16:20→22:44)
[2022-02-14 20:00] VITALS: BP 156/53
[2022-02-15] VITALS: BP 152/55
[2022-02-15] MEDS: MORPHINE SULFATE 2 MG/ML CPJ (NOT FOR IM USE) IV PRN (01:25)
[2022-02-15 04:00] VITALS: BP 159/59
[2022-02-15] MEDS: DEXT 5%/LACTATED RINGERS 1,000 ML IV SCH ×2 (05:31→19:05)
[2022-02-15] MEDS: PIPERACILLIN/TAZOBACTAM 3.375 G in DEXTROSE 5% WATER 50 ML IV SCH ×3 (05:31→21:51)
[2022-02-15 08:00] VITALS: BP 167/66
[2022-02-15] MEDS: VANCOMYCIN 750MG PMX (XELLIA) 150 ML IV SCH (09:09)
[2022-02-15] MEDS: PANTOPRAZOLE SODIUM 40 MG/VIAL IV SCH (09:11)
[2022-02-15 12:00] VITALS: BP 154/58
[2022-02-15 16:00] VITALS: BP 172/75
[2022-02-15 20:00] VITALS: BP 118/61
[2022-02-15] MEDS: IPRATROPIUM/ALBUTEROL 0.5-3(2.5)MG/3ML NEB NEB PRN (22:28)
[2022-02-16] VITALS: BP 156/58
[2022-02-16 04:00] VITALS: BP 160/74
[2022-02-16] MEDS ORDERED: ACETAMINOPHEN 650MG/20.3ML UDC GT PRN ×2 (04:55→05:00)
[2022-02-16] MEDS: PIPERACILLIN/TAZOBACTAM 3.375 G in DEXTROSE 5% WATER 50 ML IV SCH ×3 (05:06→21:15)
[2022-02-16] MEDS: PANTOPRAZOLE SODIUM 40 MG/VIAL IV SCH (09:48)
[2022-02-16] MEDS: DEXT 5%/LACTATED RINGERS 1,000 ML IV SCH ×2 (09:48→21:15)
[2022-02-16 12:00] VITALS: BP 149/51
[2022-02-16 15:17] LABS: HEMOGLOBIN. 8.7 g/dL (12.0-16.0); MEAN CORPUSCULAR HEMOGLOBIN 30.1 pg (28.0-32.0); MEAN CORPUSCULAR VOLUME 92.9 fL (81.0-99.0); MEAN PLATELET VOLUME 7.2 fl (7.4-10.4); PLATELET 586 x1000/uL (130-400); RED BLOOD CELL COUNT 2.91 mill/uL (4.2-5.4); RED CELL DISTRIBUTION WIDTH 14.8 % (11.6-14.6)
[2022-02-16 16:00] VITALS: BP 98/56
[2022-02-16 19:59] LABS: PLATELET ESTIMATE INCREASED
[2022-02-16 20:00] VITALS: BP 151/61
[2022-02-17] VITALS (14 sets, daily range): BP systolic 98–155; BP diastolic 46–78
[2022-02-17] MEDS: MORPHINE SULFATE 2 MG/ML CPJ (NOT FOR IM USE) IV PRN (00:29)
[2022-02-17] MEDS: PIPERACILLIN/TAZOBACTAM 3.375 G in DEXTROSE 5% WATER 50 ML IV SCH ×2 (05:23→21:23)
[2022-02-17 08:08] LABS: HEMATOCRIT. 25.7 % (36.0-48.0); HEMOGLOBIN. 8.4 g/dL (12.0-16.0); MEAN CORPUSCULAR HEMOGLOBIN 30.1 pg (28.0-32.0); MEAN CORPUSCULAR VOLUME 92.2 fL (81.0-99.0); MEAN PLATELET VOLUME 7.4 fl (7.4-10.4); PLATELET 585 x1000/uL (130-400); RED BLOOD CELL COUNT 2.79 mill/uL (4.2-5.4); RED CELL DISTRIBUTION WIDTH 14.6 % (11.6-14.6)
[2022-02-17 08:12] LABS: INR 1.1; PARTIAL THROMBOPLASTIN TIME 26.5 sec (23.4-31.0); PROTHROMBIN TIME 11.4 sec (9.6-11.0)
[2022-02-17 08:13] LABS: CHLORIDE 120 mEq/L (98-107)
[2022-02-17] MEDS: DIATR MEGLU/DIATRIZOATE SOLN 30ML PO NR ×2 (09:51→11:15)
[2022-02-17] MEDS: PANTOPRAZOLE SODIUM 40 MG/VIAL IV SCH (09:51)
[2022-02-17 10:50] LABS: NUCLEATED RED BLOOD CELLS 2 /100 WBC; PLATELET ESTIMATE INCREASED
[2022-02-17] MEDS: DEXT 5%/LACTATED RINGERS 1,000 ML IV SCH (11:14)
[2022-02-17] MEDS ORDERED: FENTANYL CITRATE/PF 50MCG/ML 2ML VIAL ONE (12:43)
[2022-02-17] MEDS ORDERED: LIDOCAINE HCL/PF 1% 10 MG/ML 5ML VIAL ONE ×2 (12:44→13:06)
[2022-02-17] MEDS ORDERED: FENTANYL CITRATE/PF 50MCG/ML 2ML VIAL IV ONE (13:15)
[2022-02-18] VITALS: BP 102/52
[2022-02-18] MEDS: DEXT 5%/LACTATED RINGERS 1,000 ML IV SCH ×2 (01:15→13:57)
[2022-02-18 04:00] VITALS: BP 135/59
[2022-02-18] MEDS: PIPERACILLIN/TAZOBACTAM 3.375 G in DEXTROSE 5% WATER 50 ML IV SCH ×3 (05:48→21:44)
[2022-02-18 08:00] VITALS: BP 119/86
[2022-02-18] MEDS: PANTOPRAZOLE SODIUM 40 MG/VIAL IV SCH (09:24)
[2022-02-18 12:00] VITALS: BP 135/47
[2022-02-18 16:00] VITALS: BP 130/70
[2022-02-18 20:00] VITALS: BP 129/35
[2022-02-19] VITALS: BP 137/47
[2022-02-19] MEDS: PIPERACILLIN/TAZOBACTAM 3.375 G in DEXTROSE 5% WATER 50 ML IV SCH ×2 (06:00→13:23)
[2022-02-19] MEDS: DEXT 5%/LACTATED RINGERS 1,000 ML IV SCH ×2 (06:42→16:28)
[2022-02-19 07:15] LABS: BASOPHILS % 0.1 % (0.0-2.0); EOSINOPHILS % 2.1 % (0.0-5.0); HEMATOCRIT. 21.4 % (36.0-48.0); HEMOGLOBIN. 7.2 g/dL (12.0-16.0); LYMPHOCYTES % 7.9 % (20.0-50.0); MEAN CORPUSCULAR HEMOGLOBIN 30.6 pg (28.0-32.0); MEAN CORPUSCULAR VOLUME 91.7 fL (81.0-99.0); MONOCYTES % 5.2 % (2.0-8.0); NEUTROPHILS % 84.7 % (40.0-76.0); PLATELET 541 x1000/uL (130-400); RED BLOOD CELL COUNT 2.34 mill/uL (4.2-5.4); RED CELL DISTRIBUTION WIDTH 15.1 % (11.6-14.6)
[2022-02-19 08:00] VITALS: BP 132/44
[2022-02-19] MEDS: PANTOPRAZOLE SODIUM 40 MG/VIAL IV SCH (09:04)
[2022-02-19 12:00] VITALS: BP 127/40
[2022-02-19 16:00] VITALS: BP 132/73
[2022-02-19 20:00] VITALS: BP 117/35
[2022-02-20] VITALS: BP 124/35
[2022-02-20 04:00] VITALS: BP 107/32
[2022-02-20] MEDS: DEXT 5%/LACTATED RINGERS 1,000 ML IV SCH ×2 (04:47→09:35)
[2022-02-20 08:00] VITALS: BP 130/50
[2022-02-20] MEDS: PANTOPRAZOLE SODIUM 40 MG/VIAL IV SCH (09:35)
[2022-02-20] MEDS: BUTALBITAL/ACETAMINOPHEN/CAFFEINE 50/325/40MG TABLET PO PRN ×2 (09:37→15:10)
[2022-02-20 11:29] LABS: HEMATOCRIT. 24.1 % (36.0-48.0); HEMOGLOBIN. 7.7 g/dL (12.0-16.0); MEAN CORPUSCULAR HEMOGLOBIN 30.3 pg (28.0-32.0); MEAN CORPUSCULAR VOLUME 94.8 fL (81.0-99.0); MEAN PLATELET VOLUME 8.9 fl (7.4-10.4); PLATELET 529 x1000/uL (130-400); RED BLOOD CELL COUNT 2.54 mill/uL (4.2-5.4); RED CELL DISTRIBUTION WIDTH 15.2 % (11.6-14.6)
[2022-02-20 11:45] LABS: CHLORIDE 119 mEq/L (98-107)
[2022-02-20 12:00] VITALS: BP 135/79
[2022-02-20 13:01] LABS: PLATELET ESTIMATE INCREASED
[2022-02-20 16:00] VITALS: BP 136/57
[2022-02-20] MEDS ORDERED: POTASSIUM CHLORIDE 20MEQ TABLET SR PO NR (16:30)
[2022-02-20 20:00] VITALS: BP 141/48
[2022-02-21] VITALS: BP 156/54
[2022-02-21] MEDS ORDERED: SODIUM CHLORIDE 0.9% 250 ML IV ONE (03:45)
[2022-02-21] MEDS ORDERED: DIATR MEGLU/DIATRIZOATE SOLN 30ML PO SCH (03:45)
[2022-02-21 04:40] VITALS: BP 132/58
[2022-02-21 08:00] VITALS: BP 122/63
[2022-02-21] MEDS ORDERED: SODIUM CHLORIDE 0.9% 1,000 ML IV NR (09:30)
[2022-02-21] MEDS: DEXT 5%/LACTATED RINGERS 1,000 ML IV SCH ×2 (10:15→23:06)
[2022-02-21] MEDS: PANTOPRAZOLE SODIUM 40 MG/VIAL IV SCH (10:15)
[2022-02-21] MEDS ORDERED: MICAFUNGIN 100 MG in SODIUM CHLORIDE 0.9% 100 ML IV SCH (11:00)
[2022-02-21 12:00] VITALS: BP 120/54
[2022-02-21] MEDS ORDERED: IOHEXOL-300 100 ML BOTTLE ONE (14:57)
[2022-02-21 16:00] VITALS: BP 128/62
[2022-02-21] MEDS: FLUCONAZOLE 400MG/200ML BAG 200 ML IV SCH ×4 (18:05→23:05)
[2022-02-21 20:00] VITALS: BP 131/57
[2022-02-21] MEDS: PIPERACILLIN/TAZOBACTAM 3.375 G in DEXTROSE 5% WATER 50 ML IV SCH (23:06)
[2022-02-22] VITALS (10 sets, daily range): BP systolic 105–126; BP diastolic 41–55
[2022-02-22] MEDS: PIPERACILLIN/TAZOBACTAM 3.375 G in DEXTROSE 5% WATER 50 ML IV SCH ×3 (05:21→21:14)
[2022-02-22 08:42] LABS: BASOPHILS % 0.3 % (0.0-2.0); EOSINOPHILS % 1.4 % (0.0-5.0); LYMPHOCYTES % 8.2 % (20.0-50.0); MEAN CORPUSCULAR HEMOGLOBIN 30.8 pg (28.0-32.0); MEAN CORPUSCULAR VOLUME 92.3 fL (81.0-99.0); MEAN PLATELET VOLUME 8.5 fl (7.4-10.4); MONOCYTES % 6.9 % (2.0-8.0); NEUTROPHILS % 83.2 % (40.0-76.0); PLATELET 410 x1000/uL (130-400); RED BLOOD CELL COUNT 2.14 mill/uL (4.2-5.4); RED CELL DISTRIBUTION WIDTH 14.7 % (11.6-14.6)
[2022-02-22] MEDS ORDERED: LIDOCAINE HCL 1% 50ML VIAL (10MG/ML) ONE (08:43)
[2022-02-22 09:00] LABS: HEMOGLOBIN. 6.6 g/dL (12.0-16.0)
[2022-02-22 09:01] LABS: HEMATOCRIT. 19.8 % (36.0-48.0)
[2022-02-22] MEDS: PANTOPRAZOLE SODIUM 40 MG/VIAL IV SCH (09:40)
[2022-02-22] MEDS: FLUCONAZOLE 400MG/200ML BAG 200 ML IV SCH (13:48)
[2022-02-22] MEDS: DEXT 5%/LACTATED RINGERS 1,000 ML IV SCH ×2 (13:49→23:46)
[2022-02-22] MEDS ORDERED: FLUCONAZOLE 400MG/200ML BAG 200 ML IV SCH (16:00)
[2022-02-22 21:14] LABS: HEMATOCRIT 25.3 % (36.0-48.0); HEMOGLOBIN 8.5 g/dL (12.0-16.0)
[2022-02-23] VITALS: BP 109/44
[2022-02-23 04:00] VITALS: BP 122/46
[2022-02-23] MEDS: PIPERACILLIN/TAZOBACTAM 3.375 G in DEXTROSE 5% WATER 50 ML IV SCH ×3 (05:34→22:00)
[2022-02-23 08:00] VITALS: BP 123/59
[2022-02-23 08:33] LABS: HEMATOCRIT. 23.5 % (36.0-48.0); HEMOGLOBIN. 7.9 g/dL (12.0-16.0); MEAN CORPUSCULAR HEMOGLOBIN 30.3 pg (28.0-32.0); MEAN PLATELET VOLUME 8.6 fl (7.4-10.4); PLATELET 428 x1000/uL (130-400); RED BLOOD CELL COUNT 2.62 mill/uL (4.2-5.4); RED CELL DISTRIBUTION WIDTH 14.7 % (11.6-14.6)
[2022-02-23 09:05] LABS: CHLORIDE 119 mEq/L (98-107)
[2022-02-23] MEDS: PANTOPRAZOLE SODIUM 40 MG/VIAL IV SCH (09:51)
[2022-02-23] MEDS ORDERED: KCL 20MEQ/100ML PREMIX 100 ML IV NR (10:00)
[2022-02-23 12:00] VITALS: BP 132/47
[2022-02-23] MEDS ORDERED: CEFAZOLIN SODIUM 1000MG/VIAL ONE (13:09)
[2022-02-23] MEDS ORDERED: ETOMIDATE 2MG/ML 10ML VIAL IV ONE (13:09)
[2022-02-23] MEDS ORDERED: SUCCINYLCHOLINE CHLORIDE 200MG/10ML IV ONE (13:09)
[2022-02-23] MEDS ORDERED: IOHEXOL-300 50 ML BOTTLE IV ONE (13:16)
[2022-02-23] MEDS ORDERED: ROCURONIUM BROMIDE 10MG/ML VIAL 5ML IV ONE (13:26)
[2022-02-23] MEDS ORDERED: MEPERIDINE HCL/PF 25MG/ML CPJ IV PRN (13:45)
[2022-02-23] MEDS ORDERED: HYDROMORPHONE HCL/PF 2MG/ML CPJ IV PRN (13:45)
[2022-02-23] MEDS ORDERED: LABETALOL 5MG/ML SYR 20 MG/4 ML SYRINGE IV PRN (13:45)
[2022-02-23] MEDS ORDERED: ONDANSETRON HCL 4MG/2ML INJ IV PRN (13:45)
[2022-02-23] MEDS ORDERED: FENTANYL CITRATE/PF 50MCG/ML 2ML VIAL ONE (14:21)
[2022-02-23] MEDS ORDERED: MIDAZOLAM HCL 2 MG/2 ML VIAL ONE (14:21)
[2022-02-23] MEDS ORDERED: NEOSTIGMINE METHYLSULFATE 1MG/ML 10 ML VIAL ONE (14:55)
[2022-02-23] MEDS ORDERED: GLYCOPYRROLATE 0.2 MG/ML 2ML VIAL ONE ×2 (14:55)
[2022-02-23 18:30] VITALS: BP 100/51
[2022-02-23 20:00] VITALS: BP 94/44
[2022-02-23 20:40] LABS: PLATELET ESTIMATE INCREASED
[2022-02-24] VITALS (7 sets, daily range): BP systolic 93–114; BP diastolic 41–55
[2022-02-24] MEDS: PIPERACILLIN/TAZOBACTAM 3.375 G in DEXTROSE 5% WATER 50 ML IV SCH ×3 (05:38→21:34)
[2022-02-24] MEDS: DEXT 5%/LACTATED RINGERS 1,000 ML IV SCH ×3 (05:39→18:43)
[2022-02-24] MEDS: PANTOPRAZOLE SODIUM 40 MG/VIAL IV SCH (09:22)
[2022-02-24] MEDS: FLUCONAZOLE 400MG/200ML BAG 200 ML IV SCH (17:18)
[2022-02-24] MEDS ORDERED: POTASSIUM CHLORIDE 20MEQ TABLET SR PO NR (19:30)
[2022-02-24] MEDS: IPRATROPIUM/ALBUTEROL 0.5-3(2.5)MG/3ML NEB NEB PRN (22:25)
[2022-02-25] VITALS: BP 115/53
[2022-02-25 04:00] VITALS: BP 110/52
[2022-02-25] MEDS: PIPERACILLIN/TAZOBACTAM 3.375 G in DEXTROSE 5% WATER 50 ML IV SCH ×2 (05:34→15:04)
[2022-02-25 08:43] VITALS: BP 116/51
[2022-02-25] MEDS: PANTOPRAZOLE SODIUM 40 MG/VIAL IV SCH (09:35)
[2022-02-25 10:44] LABS: HEMATOCRIT. 25.4 % (36.0-48.0); HEMOGLOBIN. 8.2 g/dL (12.0-16.0); MEAN CORPUSCULAR HEMOGLOBIN 30.2 pg (28.0-32.0); MEAN CORPUSCULAR VOLUME 93.5 fL (81.0-99.0); MEAN PLATELET VOLUME 8.8 fl (7.4-10.4); PLATELET 424 x1000/uL (130-400); RED BLOOD CELL COUNT 2.71 mill/uL (4.2-5.4); RED CELL DISTRIBUTION WIDTH 15.2 % (11.6-14.6)
[2022-02-25 10:59] LABS: CHLORIDE 116 mEq/L (98-107)
[2022-02-25 11:39] LABS: PLATELET ESTIMATE SLIGHTLY INCREASED
[2022-02-25 12:00] VITALS: BP 122/63
[2022-02-25] MEDS: FLUCONAZOLE 400MG/200ML BAG 200 ML IV SCH (13:43)
[2022-02-25 16:00] VITALS: BP 115/46
[2022-02-25] MEDS ORDERED: POTASSIUM CHLORIDE INJ 40 MEQ in DEXT 5% WATER 250 ML IV ONE (17:00)
[2022-02-25] MEDS: DEXT 5%/LACTATED RINGERS 1,000 ML IV SCH ×2 (18:03→19:05)
[2022-02-25 20:00] VITALS: BP 129/56
[2022-02-25] MEDS: IPRATROPIUM/ALBUTEROL 0.5-3(2.5)MG/3ML NEB HHN SCH (21:01)
[2022-02-26] VITALS: BP 126/48
[2022-02-26] MEDS: IPRATROPIUM/ALBUTEROL 0.5-3(2.5)MG/3ML NEB HHN SCH ×4 (01:25→20:55)
[2022-02-26] MEDS: PIPERACILLIN/TAZOBACTAM 3.375 G in DEXTROSE 5% WATER 50 ML IV SCH ×4 (02:36→21:13)
[2022-02-26 04:00] VITALS: BP 124/70
[2022-02-26 08:00] VITALS: BP 128/50
[2022-02-26 09:04] LABS: BASOPHILS % 0.1 % (0.0-2.0); EOSINOPHILS % 1.7 % (0.0-5.0); HEMATOCRIT. 26.4 % (36.0-48.0); HEMOGLOBIN. 8.2 g/dL (12.0-16.0); LYMPHOCYTES % 7.6 % (20.0-50.0); MEAN CORPUSCULAR VOLUME 96.7 fL (81.0-99.0); MEAN PLATELET VOLUME 8.6 fl (7.4-10.4); NEUTROPHILS % 82.6 % (40.0-76.0); PLATELET 375 x1000/uL (130-400); RED BLOOD CELL COUNT 2.73 mill/uL (4.2-5.4); RED CELL DISTRIBUTION WIDTH 15.7 % (11.6-14.6)
[2022-02-26 09:18] LABS: CHLORIDE 117 mEq/L (98-107)
[2022-02-26] MEDS: PANTOPRAZOLE SODIUM 40 MG/VIAL IV SCH (09:26)
[2022-02-26 12:00] VITALS: BP 127/82
[2022-02-26] MEDS: FLUCONAZOLE 400MG/200ML BAG 200 ML IV SCH (13:18)
[2022-02-26] MEDS ORDERED: POTASSIUM CHLORIDE 20MEQ TABLET SR PO NR (13:30)
[2022-02-26] MEDS ORDERED: MAGNESIUM 2 G PREMIX 50 ML IV NR ×2 (15:00)
[2022-02-26 16:00] VITALS: BP 110/41
[2022-02-26 20:00] VITALS: BP 122/41
[2022-02-26] MEDS: DEXT 5%/LACTATED RINGERS 1,000 ML IV SCH (21:15)
[2022-02-27] VITALS: BP 121/45
[2022-02-27] MEDS: IPRATROPIUM/ALBUTEROL 0.5-3(2.5)MG/3ML NEB HHN SCH ×4 (01:52→21:42)
[2022-02-27 04:00] VITALS: BP 119/39
[2022-02-27 08:00] VITALS: BP 132/62
[2022-02-27] MEDS: PANTOPRAZOLE SODIUM 40 MG/VIAL IV SCH (09:47)
[2022-02-27 12:00] VITALS: BP 126/60
[2022-02-27] MEDS: DEXT 5%/LACTATED RINGERS 1,000 ML IV SCH (12:44)
[2022-02-27] MEDS: FLUCONAZOLE 400MG/200ML BAG 200 ML IV SCH (12:45)
[2022-02-27] MEDS ORDERED: [UNRECOGNIZED DRUG - REMARK] XX SCH (15:00)
[2022-02-27 15:39] VITALS: BP 122/65
[2022-02-27] MEDS: PIPERACILLIN/TAZOBACTAM 3.375 G in DEXTROSE 5% WATER 50 ML IV SCH ×2 (17:29→22:02)
[2022-02-27 20:00] VITALS: BP 140/60
[2022-02-28 00:31] VITALS: BP 129/44
[2022-02-28] MEDS: IPRATROPIUM/ALBUTEROL 0.5-3(2.5)MG/3ML NEB HHN SCH ×4 (02:12→18:00)
[2022-02-28] MEDS: DEXT 5%/LACTATED RINGERS 1,000 ML IV SCH ×2 (02:13→13:55)
[2022-02-28 04:00] VITALS: BP 131/51
[2022-02-28] MEDS: PIPERACILLIN/TAZOBACTAM 3.375 G in DEXTROSE 5% WATER 50 ML IV SCH ×3 (05:32→22:08)
[2022-02-28 07:55] VITALS: BP 125/48
[2022-02-28] MEDS: PANTOPRAZOLE SODIUM 40 MG/VIAL IV SCH (10:47)
[2022-02-28 12:00] VITALS: BP 128/52
[2022-02-28] MEDS: FLUCONAZOLE 400MG/200ML BAG 200 ML IV SCH (13:55)
[2022-02-28 16:00] VITALS: BP 135/57
[2022-02-28 20:00] VITALS: BP 136/42
[2022-03-01] VITALS: BP 129/44
[2022-03-01] MEDS: DEXT 5%/LACTATED RINGERS 1,000 ML IV SCH ×2 (02:43→18:34)
[2022-03-01 04:00] VITALS: BP 134/47
[2022-03-01] MEDS: PIPERACILLIN/TAZOBACTAM 3.375 G in DEXTROSE 5% WATER 50 ML IV SCH ×3 (06:07→21:46)
[2022-03-01 08:00] VITALS: BP 109/58
[2022-03-01] MEDS: IPRATROPIUM/ALBUTEROL 0.5-3(2.5)MG/3ML NEB HHN SCH ×4 (08:08→20:46)
[2022-03-01] MEDS: PANTOPRAZOLE SODIUM 40 MG/VIAL IV SCH (08:58)
[2022-03-01] MEDS: FLUCONAZOLE 400MG/200ML BAG 200 ML IV SCH (11:34)
[2022-03-01 12:08] VITALS: BP 133/48
[2022-03-01 15:46] VITALS: BP 114/79
[2022-03-01 20:00] VITALS: BP 135/55
[2022-03-02] VITALS: BP 130/43
[2022-03-02] MEDS: IPRATROPIUM/ALBUTEROL 0.5-3(2.5)MG/3ML NEB HHN SCH ×4 (01:35→22:20)
[2022-03-02 04:00] VITALS: BP 126/45
[2022-03-02] MEDS: PIPERACILLIN/TAZOBACTAM 3.375 G in DEXTROSE 5% WATER 50 ML IV SCH ×3 (05:34→21:10)
[2022-03-02] MEDS: DEXT 5%/LACTATED RINGERS 1,000 ML IV SCH (05:35)
[2022-03-02] MEDS: PANTOPRAZOLE SODIUM 40 MG/VIAL IV SCH (09:00)
[2022-03-02] MEDS: FLUCONAZOLE 400MG/200ML BAG 200 ML IV SCH (12:00)
[2022-03-02] MEDS ORDERED: LIDOCAINE HCL/PF 1% 10 MG/ML 5ML VIAL ONE (13:08)
[2022-03-02] MEDS ORDERED: IOHEXOL-300 50 ML BOTTLE IV ONE (13:08)
[2022-03-02] MEDS ORDERED: LIDOCAINE HCL 2% JELLY 5ML ONE (14:09)
[2022-03-02 20:00] VITALS: BP 142/56
[2022-03-03] VITALS: BP 128/46
[2022-03-03] MEDS: IPRATROPIUM/ALBUTEROL 0.5-3(2.5)MG/3ML NEB HHN SCH ×4 (03:50→21:11)
[2022-03-03 04:00] VITALS: BP 132/43
[2022-03-03] MEDS: PIPERACILLIN/TAZOBACTAM 3.375 G in DEXTROSE 5% WATER 50 ML IV SCH ×3 (05:49→21:19)
[2022-03-03] MEDS: DEXT 5%/LACTATED RINGERS 1,000 ML IV SCH ×2 (05:49→11:23)
[2022-03-03 07:50] LABS: CHLORIDE 110 mEq/L (98-107)
[2022-03-03 08:00] VITALS: BP 114/51
[2022-03-03] MEDS: FLUCONAZOLE 400MG/200ML BAG 200 ML IV SCH (11:12)
[2022-03-03] MEDS: PANTOPRAZOLE SODIUM 40 MG/VIAL IV SCH (11:12)
[2022-03-03 11:21] LABS: BASOPHILS % 0.2 % (0.0-2.0); EOSINOPHILS % 2.3 % (0.0-5.0); HEMATOCRIT. 25.5 % (36.0-48.0); HEMOGLOBIN. 8.2 g/dL (12.0-16.0); LYMPHOCYTES % 12.6 % (20.0-50.0); MEAN CORPUSCULAR HEMOGLOBIN 29.4 pg (28.0-32.0); MEAN CORPUSCULAR VOLUME 91.2 fL (81.0-99.0); MEAN PLATELET VOLUME 8.9 fl (7.4-10.4); MONOCYTES % 11.2 % (2.0-8.0); NEUTROPHILS % 73.7 % (40.0-76.0); PLATELET 347 x1000/uL (130-400); RED CELL DISTRIBUTION WIDTH 14.8 % (11.6-14.6)
[2022-03-03 12:00] VITALS: BP 128/50
[2022-03-03 16:00] VITALS: BP 112/52
[2022-03-03 20:00] VITALS: BP 146/53
[2022-03-04] VITALS: BP 149/60
[2022-03-04] MEDS: IPRATROPIUM/ALBUTEROL 0.5-3(2.5)MG/3ML NEB HHN SCH ×4 (01:23→21:14)
[2022-03-04 04:00] VITALS: BP 149/55
[2022-03-04] MEDS: PIPERACILLIN/TAZOBACTAM 3.375 G in DEXTROSE 5% WATER 50 ML IV SCH ×3 (05:43→22:45)
[2022-03-04] MEDS: DEXT 5%/LACTATED RINGERS 1,000 ML IV SCH ×2 (05:43→11:05)
[2022-03-04 08:00] VITALS: BP 132/61
[2022-03-04] MEDS: PANTOPRAZOLE SODIUM 40 MG/VIAL IV SCH (11:08)
[2022-03-04 12:00] VITALS: BP 142/66
[2022-03-04] MEDS: FLUCONAZOLE 400MG/200ML BAG 200 ML IV SCH (14:21)
[2022-03-04 16:00] VITALS: BP 137/66
[2022-03-04 20:00] VITALS: BP 137/62
[2022-03-05] VITALS: BP 134/61
[2022-03-05] MEDS: IPRATROPIUM/ALBUTEROL 0.5-3(2.5)MG/3ML NEB HHN SCH ×4 (03:20→20:59)
[2022-03-05 04:00] VITALS: BP 116/41
[2022-03-05] MEDS: DEXT 5%/LACTATED RINGERS 1,000 ML IV SCH ×2 (06:00→13:18)
[2022-03-05] MEDS: PIPERACILLIN/TAZOBACTAM 3.375 G in DEXTROSE 5% WATER 50 ML IV SCH ×3 (06:04→21:41)
[2022-03-05 08:00] VITALS: BP 129/48
[2022-03-05] MEDS: PANTOPRAZOLE SODIUM 40 MG/VIAL IV SCH (09:34)
[2022-03-05 12:00] VITALS: BP 141/51
[2022-03-05] MEDS: FLUCONAZOLE 400MG/200ML BAG 200 ML IV SCH (13:17)
[2022-03-05 16:00] VITALS: BP 143/56
[2022-03-05 20:00] VITALS: BP 136/59
[2022-03-06] VITALS: BP 150/52
[2022-03-06] MEDS: IPRATROPIUM/ALBUTEROL 0.5-3(2.5)MG/3ML NEB HHN SCH ×4 (01:08→21:32)
[2022-03-06] MEDS: DEXT 5%/LACTATED RINGERS 1,000 ML IV SCH ×2 (03:57→16:25)
[2022-03-06 04:00] VITALS: BP 128/57
[2022-03-06] MEDS: PIPERACILLIN/TAZOBACTAM 3.375 G in DEXTROSE 5% WATER 50 ML IV SCH ×3 (05:15→22:55)
[2022-03-06 08:00] VITALS: BP 156/62
[2022-03-06] MEDS: PANTOPRAZOLE SODIUM 40 MG/VIAL IV SCH (09:00)
[2022-03-06 12:00] VITALS: BP 119/62
[2022-03-06] MEDS: FLUCONAZOLE 400MG/200ML BAG 200 ML IV SCH (12:35)
[2022-03-06 16:00] VITALS: BP 121/57
[2022-03-06 20:00] VITALS: BP 151/60
[2022-03-07] VITALS: BP 144/64
[2022-03-07] MEDS: IPRATROPIUM/ALBUTEROL 0.5-3(2.5)MG/3ML NEB HHN SCH ×4 (01:22→20:25)
[2022-03-07 04:00] VITALS: BP 150/56
[2022-03-07] MEDS: PIPERACILLIN/TAZOBACTAM 3.375 G in DEXTROSE 5% WATER 50 ML IV SCH ×3 (05:12→21:09)
[2022-03-07] MEDS: DEXT 5%/LACTATED RINGERS 1,000 ML IV SCH ×2 (05:45→19:05)
[2022-03-07 08:00] VITALS: BP 141/61
[2022-03-07 08:03] LABS: BASOPHILS % 0.2 % (0.0-2.0); EOSINOPHILS % 0.7 % (0.0-5.0); HEMATOCRIT. 24.6 % (36.0-48.0); HEMOGLOBIN. 8.1 g/dL (12.0-16.0); MEAN CORPUSCULAR HEMOGLOBIN 29.5 pg (28.0-32.0); MEAN CORPUSCULAR VOLUME 89.2 fL (81.0-99.0); MEAN PLATELET VOLUME 7.9 fl (7.4-10.4); MONOCYTES % 8.6 % (2.0-8.0); NEUTROPHILS % 77.5 % (40.0-76.0); PLATELET 390 x1000/uL (130-400); RED BLOOD CELL COUNT 2.75 mill/uL (4.2-5.4); RED CELL DISTRIBUTION WIDTH 15.1 % (11.6-14.6)
[2022-03-07] MEDS: PANTOPRAZOLE SODIUM 40 MG/VIAL IV SCH (09:00)
[2022-03-07 09:19] LABS: CHLORIDE 109 mEq/L (98-107)
[2022-03-07 12:00] VITALS: BP 149/63
[2022-03-07] MEDS ORDERED: FUROSEMIDE 20MG/2ML VIAL IVP NR (12:30)
[2022-03-07] MEDS ORDERED: POTASSIUM CHLORIDE 20MEQ TABLET SR PO NR (12:30)
[2022-03-07] MEDS ORDERED: DIATR MEGLU/DIATRIZOATE SOLN 30ML PO SCH (13:45)
[2022-03-07] MEDS: FLUCONAZOLE 400MG/200ML BAG 200 ML IV SCH (15:22)
[2022-03-07 16:00] VITALS: BP 145/65
[2022-03-07 20:00] VITALS: BP 148/70
[2022-03-08] VITALS: BP 121/53
[2022-03-08] MEDS: IPRATROPIUM/ALBUTEROL 0.5-3(2.5)MG/3ML NEB HHN SCH ×4 (02:05→22:00)
[2022-03-08 04:00] VITALS: BP 125/48
[2022-03-08] MEDS: PIPERACILLIN/TAZOBACTAM 3.375 G in DEXTROSE 5% WATER 50 ML IV SCH ×3 (05:11→22:26)
[2022-03-08 08:00] VITALS: BP 138/39
[2022-03-08] MEDS: DEXT 5%/LACTATED RINGERS 1,000 ML IV SCH (08:25)
[2022-03-08] MEDS: PANTOPRAZOLE SODIUM 40 MG/VIAL IV SCH (09:37)
[2022-03-08 12:00] VITALS: BP 136/66
[2022-03-08] MEDS: FLUCONAZOLE 400MG/200ML BAG 200 ML IV SCH (13:05)
[2022-03-08 16:00] VITALS: BP 138/34
[2022-03-08 17:16] LABS: HEMATOCRIT 30.1 % (36.0-48.0); HEMOGLOBIN 9.7 g/dL (12.0-16.0); MEAN CORPUSCULAR VOLUME 89.9 fL (81.0-99.0); PLATELET 349 x1000/uL (130-400); RED BLOOD CELL COUNT 3.35 mill/uL (4.2-5.4); RED CELL DISTRIBUTION WIDTH 15.2 % (11.6-14.6)
[2022-03-08 20:00] VITALS: BP 130/76
[2022-03-09] VITALS: BP 119/71
[2022-03-09] MEDS: IPRATROPIUM/ALBUTEROL 0.5-3(2.5)MG/3ML NEB HHN SCH ×4 (03:10→21:33)
[2022-03-09 04:00] VITALS: BP 117/80
[2022-03-09] MEDS: PIPERACILLIN/TAZOBACTAM 3.375 G in DEXTROSE 5% WATER 50 ML IV SCH ×3 (06:29→21:26)
[2022-03-09 08:00] VITALS: BP 132/40
[2022-03-09 12:00] VITALS: BP 95/30
[2022-03-09] MEDS: FLUCONAZOLE 400MG/200ML BAG 200 ML IV SCH (12:23)
[2022-03-09 16:00] VITALS: BP 135/55
[2022-03-09 20:00] VITALS: BP 140/60
[2022-03-09] MEDS: ONDANSETRON HCL 4MG/2ML INJ IV PRN (21:26)
[2022-03-10] VITALS: BP 131/59
[2022-03-10] MEDS: IPRATROPIUM/ALBUTEROL 0.5-3(2.5)MG/3ML NEB HHN SCH ×4 (01:09→22:34)
[2022-03-10 04:00] VITALS: BP 142/54
[2022-03-10] MEDS: PIPERACILLIN/TAZOBACTAM 3.375 G in DEXTROSE 5% WATER 50 ML IV SCH ×3 (05:54→22:04)
[2022-03-10 08:00] VITALS: BP 145/45
[2022-03-10] MEDS: FLUCONAZOLE 400MG/200ML BAG 200 ML IV SCH (11:44)
[2022-03-10 12:00] VITALS: BP 140/60
[2022-03-10 16:00] VITALS: BP 138/64
[2022-03-10 20:00] VITALS: BP 129/60
[2022-03-10 21:55] LABS: BASOPHILS % 0.2 % (0.0-2.0); EOSINOPHILS % 0.5 % (0.0-5.0); HEMATOCRIT. 26.7 % (36.0-48.0); HEMOGLOBIN. 8.8 g/dL (12.0-16.0); LYMPHOCYTES % 13.9 % (20.0-50.0); MEAN CORPUSCULAR HEMOGLOBIN 29.1 pg (28.0-32.0); MEAN CORPUSCULAR VOLUME 88.6 fL (81.0-99.0); MEAN PLATELET VOLUME 7.4 fl (7.4-10.4); MONOCYTES % 8.7 % (2.0-8.0); NEUTROPHILS % 76.7 % (40.0-76.0); PLATELET 344 x1000/uL (130-400); RED BLOOD CELL COUNT 3.01 mill/uL (4.2-5.4); RED CELL DISTRIBUTION WIDTH 15.2 % (11.6-14.6)
[2022-03-10 22:04] LABS: CHLORIDE 110 mEq/L (98-107)
[2022-03-10 23:16] LABS: VITAMIN B12 SERUM > 2000.0 pg/mL (211-911)
[2022-03-11] VITALS: BP 117/53
[2022-03-11] MEDS: IPRATROPIUM/ALBUTEROL 0.5-3(2.5)MG/3ML NEB HHN SCH ×4 (01:56→20:40)
[2022-03-11 04:00] VITALS: BP 115/59
[2022-03-11] MEDS: ONDANSETRON HCL 4MG/2ML INJ IV PRN ×2 (04:36→12:47)
[2022-03-11] MEDS: PIPERACILLIN/TAZOBACTAM 3.375 G in DEXTROSE 5% WATER 50 ML IV SCH ×3 (05:42→22:07)
[2022-03-11 08:00] VITALS: BP 140/51
[2022-03-11] MEDS ORDERED: POTASSIUM CHLORIDE 20MEQ TABLET SR PO SCH ×2 (09:00→12:00)
[2022-03-11 12:00] VITALS: BP 140/60
[2022-03-11] MEDS ORDERED: POTASSIUM CHLORIDE INJ 40 MEQ in DEXT 5% WATER 250 ML IV ONE (12:00)
[2022-03-11] MEDS: FLUCONAZOLE 400MG/200ML BAG 200 ML IV SCH (12:48)
[2022-03-11 12:58] LABS: PHOSPHORUS 2.5 mg/dL (2.5-4.9)
[2022-03-11] MEDS ORDERED: KCL 20MEQ/100ML X 2 FOR TOTAL KCL 40MEQ/200ML IV SCH (14:00)
[2022-03-11 20:00] VITALS: BP 135/58
[2022-03-12] VITALS: BP 101/33
[2022-03-12] MEDS: IPRATROPIUM/ALBUTEROL 0.5-3(2.5)MG/3ML NEB HHN SCH ×4 (00:46→20:58)
[2022-03-12 04:00] VITALS: BP 142/44
[2022-03-12] MEDS: PIPERACILLIN/TAZOBACTAM 3.375 G in DEXTROSE 5% WATER 50 ML IV SCH ×3 (05:48→22:21)
[2022-03-12 08:00] VITALS: BP 131/50
[2022-03-12] MEDS ORDERED: POTASSIUM CHLORIDE 20MEQ TABLET SR PO ONE (09:15)
[2022-03-12] MEDS ORDERED: POTASSIUM CHLORIDE INJ 40 MEQ in DEXT 5% WATER 250 ML IV ONE (09:15)
[2022-03-12] MEDS ORDERED: MAGNESIUM 2 G PREMIX 50 ML IV NR (11:00)
[2022-03-12 12:00] VITALS: BP 130/53
[2022-03-12 12:29] LABS: PHOSPHORUS 2.4 mg/dL (2.5-4.9)
[2022-03-12] MEDS: FLUCONAZOLE 400MG/200ML BAG 200 ML IV SCH (15:15)
[2022-03-12] MEDS ORDERED: POTASSIUM CHLORIDE 20MEQ TABLET SR PO NR (15:15)
[2022-03-12 16:00] VITALS: BP 127/42
[2022-03-12 20:00] VITALS: BP 135/50
[2022-03-13] VITALS: BP 121/43
[2022-03-13] MEDS: IPRATROPIUM/ALBUTEROL 0.5-3(2.5)MG/3ML NEB HHN SCH ×4 (01:05→22:24)
[2022-03-13 03:45] VITALS: BP 125/74
[2022-03-13] MEDS: PIPERACILLIN/TAZOBACTAM 3.375 G in DEXTROSE 5% WATER 50 ML IV SCH ×3 (06:29→21:22)
[2022-03-13 08:00] VITALS: BP 135/94
[2022-03-13] MEDS: FLUCONAZOLE 400MG/200ML BAG 200 ML IV SCH (11:32)
[2022-03-13 12:00] VITALS: BP 138/40
[2022-03-13 16:00] VITALS: BP 128/46
[2022-03-13] MEDS: ONDANSETRON HCL 4MG/2ML INJ IV PRN (18:45)
[2022-03-13 20:00] VITALS: BP 128/48
[2022-03-14] VITALS: BP 145/49
[2022-03-14] MEDS: IPRATROPIUM/ALBUTEROL 0.5-3(2.5)MG/3ML NEB HHN SCH ×4 (03:41→21:40)
[2022-03-14 04:00] VITALS: BP 121/36
[2022-03-14 08:00] VITALS: BP 117/72
[2022-03-14 08:07] LABS: CHLORIDE 111 mEq/L (98-107)
[2022-03-14] MEDS ORDERED: ONDANSETRON HCL 4MG/2ML INJ IV PRN (11:00)
[2022-03-14] MEDS: ONDANSETRON HCL 4MG/2ML INJ IV PRN (11:22)
[2022-03-14 12:00] VITALS: BP 113/73
[2022-03-14] MEDS: DIATR MEGLU/DIATRIZOATE SOLN 30ML PO SCH ×3 (15:52→15:54)
[2022-03-14 16:00] VITALS: BP 151/54
[2022-03-14] MEDS: LEVOFLOXACIN 500MG TABLET PO SCH (16:08)
[2022-03-14] MEDS: FLUCONAZOLE 100MG TABLET PO SCH (16:08)
[2022-03-14 16:23] LABS: BASOPHILS % 0.1 % (0.0-2.0); EOSINOPHILS % 0.2 % (0.0-5.0); HEMATOCRIT. 30.6 % (36.0-48.0); HEMOGLOBIN. 9.9 g/dL (12.0-16.0); MEAN CORPUSCULAR HEMOGLOBIN 29.4 pg (28.0-32.0); MEAN CORPUSCULAR VOLUME 90.9 fL (81.0-99.0); MEAN PLATELET VOLUME 7.6 fl (7.4-10.4); MONOCYTES % 6.9 % (2.0-8.0); NEUTROPHILS % 74.8 % (40.0-76.0); PLATELET 303 x1000/uL (130-400); RED BLOOD CELL COUNT 3.37 mill/uL (4.2-5.4); RED CELL DISTRIBUTION WIDTH 15.9 % (11.6-14.6)
[2022-03-14 16:36] LABS: CHLORIDE 112 mEq/L (98-107)
[2022-03-14 20:00] VITALS: BP 132/53
[2022-03-14] MEDS: METRONIDAZOLE 500MG TABLET PO SCH (21:19)
[2022-03-15] VITALS (26 sets, daily range): BP systolic 119–174; BP diastolic 44–73
[2022-03-15] MEDS: IPRATROPIUM/ALBUTEROL 0.5-3(2.5)MG/3ML NEB HHN SCH ×4 (02:56→21:37)
[2022-03-15] MEDS ORDERED: LIDOCAINE HCL 1% 20ML VIAL (Pyxis) INJ ONE (08:23)
[2022-03-15] MEDS ORDERED: FENTANYL CITRATE/PF 50MCG/ML 2ML VIAL ONE (08:23)
[2022-03-15] MEDS ORDERED: MIDAZOLAM HCL 2 MG/2 ML VIAL ONE (09:42)
[2022-03-15] MEDS ORDERED: FENTANYL CITRATE/PF 50MCG/ML 2ML VIAL IV NR (11:00)
[2022-03-15] MEDS ORDERED: MIDAZOLAM HCL 2 MG/2 ML VIAL IV ONE (11:30)
[2022-03-15] MEDS: METRONIDAZOLE 500MG TABLET PO SCH ×2 (11:32→21:46)
[2022-03-15] MEDS: LEVOFLOXACIN 500MG TABLET PO SCH (11:32)
[2022-03-15] MEDS: FLUCONAZOLE 100MG TABLET PO SCH (11:39)
[2022-03-16] VITALS: BP 133/48
[2022-03-16] MEDS: IPRATROPIUM/ALBUTEROL 0.5-3(2.5)MG/3ML NEB HHN SCH ×4 (01:29→22:00)
[2022-03-16 04:00] VITALS: BP 135/54
[2022-03-16 08:00] VITALS: BP 95/49
[2022-03-16] MEDS: METRONIDAZOLE 500MG TABLET PO SCH ×2 (09:09→21:20)
[2022-03-16] MEDS: FLUCONAZOLE 100MG TABLET PO SCH (09:12)
[2022-03-16 12:00] VITALS: BP 154/68
[2022-03-16] MEDS: LEVOFLOXACIN 500MG TABLET PO SCH (13:12)
[2022-03-16 16:00] VITALS: BP 134/56
[2022-03-16 20:00] VITALS: BP 157/42
[2022-03-16] MEDS: ONDANSETRON HCL 4MG/2ML INJ IV PRN (21:20)
[2022-03-17] VITALS (7 sets, daily range): BP systolic 121–154; BP diastolic 41–58
[2022-03-17] MEDS: IPRATROPIUM/ALBUTEROL 0.5-3(2.5)MG/3ML NEB HHN SCH ×4 (02:30→22:16)
[2022-03-17] MEDS: FLUCONAZOLE 100MG TABLET PO SCH (09:08)
[2022-03-17] MEDS: METRONIDAZOLE 500MG TABLET PO SCH ×2 (09:08→21:02)
[2022-03-17] MEDS: LEVOFLOXACIN 500MG TABLET PO SCH (14:16)
[2022-03-17] MEDS: MIRTAZAPINE 15MG TABLET PO SCH (21:02)
[2022-03-18] VITALS: BP 125/60
[2022-03-18] MEDS: IPRATROPIUM/ALBUTEROL 0.5-3(2.5)MG/3ML NEB HHN SCH ×4 (00:57→21:05)
[2022-03-18 04:00] VITALS: BP 151/53
[2022-03-18 08:12] VITALS: BP 153/58
[2022-03-18] MEDS: METRONIDAZOLE 500MG TABLET PO SCH ×2 (08:25→21:14)
[2022-03-18] MEDS: FLUCONAZOLE 100MG TABLET PO SCH (08:25)
[2022-03-18] MEDS: LEVOFLOXACIN 500MG TABLET PO SCH (10:15)
[2022-03-18 12:36] VITALS: BP 155/77
[2022-03-18 15:41] LABS: BASOPHILS % 0.1 % (0.0-2.0); EOSINOPHILS % 0.4 % (0.0-5.0); HEMATOCRIT. 29.3 % (36.0-48.0); HEMOGLOBIN. 9.3 g/dL (12.0-16.0); LYMPHOCYTES % 22.5 % (20.0-50.0); MEAN CORPUSCULAR HEMOGLOBIN 29.2 pg (28.0-32.0); MEAN CORPUSCULAR VOLUME 91.9 fL (81.0-99.0); MEAN PLATELET VOLUME 7.5 fl (7.4-10.4); MONOCYTES % 9.8 % (2.0-8.0); NEUTROPHILS % 67.2 % (40.0-76.0); PLATELET 238 x1000/uL (130-400); RED BLOOD CELL COUNT 3.19 mill/uL (4.2-5.4); RED CELL DISTRIBUTION WIDTH 17.1 % (11.6-14.6)
[2022-03-18 15:49] VITALS: BP 148/61
[2022-03-18 15:49] LABS: CHLORIDE 112 mEq/L (98-107)
[2022-03-18 20:00] VITALS: BP 146/58
[2022-03-18] MEDS: MIRTAZAPINE 15MG TABLET PO SCH (21:14)
[2022-03-19] VITALS: BP 144/61
[2022-03-19] MEDS: IPRATROPIUM/ALBUTEROL 0.5-3(2.5)MG/3ML NEB HHN SCH ×4 (02:46→21:36)
[2022-03-19 04:00] VITALS: BP 138/52
[2022-03-19 08:00] VITALS: BP 152/54
[2022-03-19] MEDS ORDERED: DIATR MEGLU/DIATRIZOATE SOLN 30ML PO SCH (09:15)
[2022-03-19] MEDS: LEVOFLOXACIN 500MG TABLET PO SCH (11:21)
[2022-03-19] MEDS: METRONIDAZOLE 500MG TABLET PO SCH ×2 (11:21→21:50)
[2022-03-19] MEDS: FLUCONAZOLE 100MG TABLET PO SCH (11:21)
[2022-03-19 12:00] VITALS: BP 151/72
[2022-03-19 16:00] VITALS: BP 134/46
[2022-03-19 20:00] VITALS: BP 132/50
[2022-03-19] MEDS: MIRTAZAPINE 15MG TABLET PO SCH (21:50)
[2022-03-20] VITALS: BP 125/54
[2022-03-20] MEDS: IPRATROPIUM/ALBUTEROL 0.5-3(2.5)MG/3ML NEB HHN SCH ×4 (02:07→21:08)
[2022-03-20 04:00] VITALS: BP 146/54
[2022-03-20 08:00] VITALS: BP 140/62
[2022-03-20] MEDS: FLUCONAZOLE 100MG TABLET PO SCH (08:52)
[2022-03-20] MEDS: METRONIDAZOLE 500MG TABLET PO SCH ×2 (08:52→21:58)
[2022-03-20] MEDS: LEVOFLOXACIN 500MG TABLET PO SCH (11:50)
[2022-03-20 12:00] VITALS: BP 131/62
[2022-03-20] MEDS ORDERED: POTASSIUM CHLORIDE 20MEQ/PACKET PO NR ×2 (15:30→17:00)
[2022-03-20 16:00] VITALS: BP 138/53
[2022-03-20 20:00] VITALS: BP 164/83
[2022-03-20] MEDS: MIRTAZAPINE 15MG TABLET PO SCH (21:59)
[2022-03-20] MEDS: ONDANSETRON HCL 4MG/2ML INJ IV PRN (22:13)
[2022-03-21] VITALS (7 sets, daily range): BP systolic 104–152; BP diastolic 52–71
[2022-03-21] MEDS: IPRATROPIUM/ALBUTEROL 0.5-3(2.5)MG/3ML NEB HHN SCH ×4 (01:35→20:12)
[2022-03-21] MEDS: METRONIDAZOLE 500MG TABLET PO SCH (11:45)
[2022-03-21] MEDS: FLUCONAZOLE 100MG TABLET PO SCH (11:45)
[2022-03-21] MEDS ORDERED: LEVOFLOXACIN 500MG PREMIX 100 ML IV SCH (16:00)
[2022-03-21] MEDS ORDERED: FLUCONAZOLE 400MG/200ML BAG 200 ML IV SCH (16:00)
[2022-03-21] MEDS: ONDANSETRON HCL 4MG/2ML INJ IV PRN (20:49)
[2022-03-21] MEDS: MIRTAZAPINE 15MG TABLET PO SCH (21:21)
[2022-03-22] VITALS: BP 114/72
[2022-03-22] MEDS: ONDANSETRON HCL 4MG/2ML INJ IV PRN ×2 (01:40→12:22)
[2022-03-22] MEDS: IPRATROPIUM/ALBUTEROL 0.5-3(2.5)MG/3ML NEB HHN SCH ×3 (01:46→15:43)
[2022-03-22 04:00] VITALS: BP 125/61
[2022-03-22 08:00] VITALS: BP 136/64
[2022-03-22 12:00] VITALS: BP_SYST 124; BP_SYST 13; BP_DIAS 55; BP_DIAS 67
[2022-03-22 14:01] VITALS: BP 137/55
[2022-03-22 16:00] VITALS: BP 124/67
== END 2022-03-22 16:48 | DRG 853 ==
LOC: OR 07:02 → MICUSO 07:03 → 6EST 02-13 22:04 → 6WST 02-21 04:47 → 6EST 03-20 16:39
PROVIDERS: ADMIT Surgery; ATTEND Surgery
PROC: 0F190ZB Bypass Common Bile Duct to Small Intestine, Open Approach (ICD-10-PCS; principal; 2022-02-08)
PROC: 0FT40ZZ Resection of Gallbladder, Open Approach (ICD-10-PCS; 2022-02-08)
PROC: 0FJ44ZZ Inspection of Gallbladder, Percutaneous Endoscopic Approach (ICD-10-PCS; 2022-02-08)
PROC: 0DHA3UZ Insertion of Feeding Device into Jejunum, Percutaneous Approach (ICD-10-PCS; 2022-02-08)
PROC: 0W9G30Z Drainage of Peritoneal Cavity with Drainage Device, Percutaneous Approach (ICD-10-PCS; 2022-02-17)
PROC: 0W9G3ZZ Drainage of Peritoneal Cavity, Percutaneous Approach (ICD-10-PCS; 2022-02-18)
PROC: 30233N1 Transfusion of Nonautologous Red Blood Cells into Peripheral Vein, Percutaneous Approach (ICD-10-PCS; 2022-02-22)
PROC: 0WPG30Z Removal of Drainage Device from Peritoneal Cavity, Percutaneous Approach (ICD-10-PCS; 2022-02-23)
PROC: 0W9G30Z Drainage of Peritoneal Cavity with Drainage Device, Percutaneous Approach (ICD-10-PCS; 2022-02-23)
PROC: 0F9930Z Drainage of Common Bile Duct with Drainage Device, Percutaneous Approach (ICD-10-PCS; 2022-02-23)
PROC: 0W2GX0Z Change Drainage Device in Peritoneal Cavity, External Approach (ICD-10-PCS; 2022-03-02)
PROC: 0W9G3ZZ Drainage of Peritoneal Cavity, Percutaneous Approach (ICD-10-PCS; 2022-03-15)
DX: A41.9 Sepsis, unspecified organism (principal); E43 Unspecified severe protein-calorie malnutrition; K75.0 Abscess of liver; G93.41 Metabolic encephalopathy; K85.90 Acute pancreatitis without necrosis or infection, unspecified; K80.12 Calculus of gallbladder with acute and chronic cholecystitis without obstruction; G62.81 Critical illness polyneuropathy; N17.9 Acute kidney failure, unspecified; E87.1 Hypo-osmolality and hyponatremia; E87.0 Hyperosmolality and hypernatremia; N39.0 Urinary tract infection, site not specified; I10 Essential (primary) hypertension; D25.9 Leiomyoma of uterus, unspecified; E78.00 Pure hypercholesterolemia, unspecified; E83.51 Hypocalcemia; K82.8 Other specified diseases of gallbladder; R74.01 Elevation of levels of liver transaminase levels; E78.5 Hyperlipidemia, unspecified; E11.9 Type 2 diabetes mellitus without complications; R26.9 Unspecified abnormalities of gait and mobility; D64.9 Anemia, unspecified; F32.A Depression, unspecified; R00.0 Tachycardia, unspecified; E87.6 Hypokalemia; R33.9 Retention of urine, unspecified; E87.8 Other disorders of electrolyte and fluid balance, not elsewhere classified; M43.17 Spondylolisthesis, lumbosacral region; M71.22 Synovial cyst of popliteal space [Baker], left knee; M71.21 Synovial cyst of popliteal space [Baker], right knee; M47.819 Spondylosis without myelopathy or radiculopathy, site unspecified; R19.7 Diarrhea, unspecified; Z53.31 Laparoscopic surgical procedure converted to open procedure; Z88.8 Allergy status to other drugs, medicaments and biological substances; Z68.29 Body mass index [BMI] 29.0-29.9, adult; Z82.49 Family history of ischemic heart disease and other diseases of the circulatory system
CPT/HCPCS: 36415; 36598; 47534; 49450; 70551; 71045; 72141; 72146; 72148; 74018; 74176; 74177; 76942; 77002; 77012; 80048; 80053; 80076; 80202; 81003; 82040; 82140; 82607; 82746; 83036; 83540; 83550; 83605; 83735; 83880; 84075; 84100; 84132; 84134; 84145; 84439; 84443; 84450; 84460; 85014; 85018; 85025; 85027; 86850; 86900; 86920; 87075; 87426; 88304; 92523; 92610; 93005; 93970; 94002; 94640; 97110; 97162; 97164; 97166; 97168; 97530; 97535; 99152; 99153; A6261; C1725; C1729; C1758; C1760; C1769; C1893; C9113; C9803; J0330; J0690; J1450; J1940; J1956; J2248; J2250; J2270; J2370; J2405; J2543; J2704; J2710; J2765; J3010; J3370; J3475; J3480; J3490; J7030; J7050; J7060; J7121; L8514; P9016; Q9963; Q9966; Q9967; A4315; G0500

== ENCOUNTER → 2022-04-27 | Outpatient (CLI) | payer MEDICARE, MEDICAID ==
[~2022-04-27] MED LIST changes: -ALEN35TA52 PO; -CLOP75TA15 PO; -DIPH25CA83 MT; -FURO-151 PO; +IOHEXOL-300 50 ML BOTTLE IV ONE; -LEVO-65 MT; -MECL-159 PO
== END | disposition home or self-care (01) ==
LOC: CT 08:10
PROVIDERS: ATTEND Internal Medicine Critical Care Medicine
DX: K63.0 Abscess of intestine (principal); J90 Pleural effusion, not elsewhere classified; Z79.899 Other long term (current) drug therapy; Z90.49 Acquired absence of other specified parts of digestive tract
CPT/HCPCS: 47531; 74176; Q9967